=== PATIENT | male | born 1965 | race Caucasian/White ===

== ENCOUNTER 2022-06-08 07:53 | Day surgery (SDC) | payer OTHER ==
--- NOTE | 2022-06-07 17:01 | RAD REPORT ---
EXAM DESCRIPTION: Charlie Tran (2 Views)06/07/2022 4:54 pm CLINICAL HISTORY: Preop for removal mass from the back COMPARISON: One thousand sixteen FINDINGS: The lungs appear clear of acute infiltrate. The heart is normal size IMPRESSION: No acute abnormalities displayed
[2022-06-07 17:15] LABS: Absolute Lymphocytes (CBC) 1.3 K/uL (0.7-4.9); Hematocrit 41.9 % (39.6-49.0); MCV 83.6 fL (80-100); MPV 8.1 fL (7.6-11.3); RBC Red Blood Cell Count 5.01 M/uL (4.33-5.43)
[2022-06-07 17:17] LABS: Potassium 4.1 mmol/L (3.5-5.1)
--- NOTE | 2022-06-07 18:35 | EKG ---
Test Date: 2022-06-07 Test Time: 16:45:04 [employer]: CLAUDIA MEASUREMENT RESULTS: Intervals: Rate: 58 MN: 184 QRSD: 88 QT: 414 QTc: 406 [place]: P: 45 MN: 184 QRS: 42 T: 55 INTERPRETIVE STATEMENTS: Sinus bradycardia Otherwise normal ECG No previous ECG available for comparison Electronically Signed On 06-07-22 18:34:55 CDT by Luis Manuel Russell
[2022-06-08] MEDS ORDERED: CEFAZOLIN SODIUM 1 GM/VIAL ONE (08:42)
[2022-06-08] MEDS ORDERED: Ringers Lactate 1,000 ML IV ONE (08:42)
[2022-06-08] MEDS ORDERED: MIDAZOLAM HCL 2 MG/2 ML INJ ONE (10:59)
[2022-06-08] MEDS ORDERED: propofoL 200 MG/20 ML VIAL IV ONE (11:06)
[2022-06-08] MEDS ORDERED: FENTANYL CITR 100 MCG/2 ML ONE (11:06)
[2022-06-08] MEDS ORDERED: ONDANSETRON 4 MG/2 ML VIAL ONE (11:18)
--- NOTE | 2022-06-08 11:38 | P.BOP ---
Preoperative diagnosis: infected back SubQ mass Postoperative diagnosis: same plus abscess Primary procedure: Excisional biopsy of infected back SubQ mass Estimated blood loss: <10cc Specimen: mass, pus culture Findings: as above Anesthesia: General Complications: None Transferred to: Recovery Room Condition: Good
[2022-06-08] MEDS ORDERED: KETOROLAC 30 MG/ML INJ ONE (11:42)
--- NOTE | 2022-06-08 12:23 | OP ---
Date of Procedure: 06/08/2022 Surgeon: Devonte Jaimes MD Preoperative Diagnosis: Infected back subcutaneous mass with cellulitis. Postoperative Diagnosis: Infected back subcutaneous mass with cellulitis plus abscess. Procedure: Excisional biopsy of infected back subcutaneous mass, 4 x 4 cm. Estimated Blood Loss: Less than 10 mL. Specimen: Mass and pus culture. Finding: The patient has a mass. Deep to that near the muscle, there was an abscess. Both of them were explored and removed. Anesthesia: General plus local. Complications: None. Indication: This is the case of a 57-year-old patient, who comes to us with above diagnoses. Fully explained the benefits, alternatives, and risks of excisional biopsy of infected subcutaneous mass, w hich include, but not limited to infection, bleeding, damage to adjacent structures, anesthesia compl ications, recurrence, DC and even . He also understands this may not relieve any symptoms. He might need more than one surgical intervention and he will require wound care. He signed a consent. Procedure In Detail: The patient was brought to the operating room, placed in supine position. Anes thesia was done without complication. A time-out was called. The patient was placed in lateral decu bitus position with proper protection. The back area was prepped and draped in the usual sterile fas hion. We already have pus coming from the wound, so we did a culture of that area, then proceeded to delineate the mass itself and then made an incision to remove the skin involving that area since it is attached to it and also the subcutaneous tissue. This allowed to visualize an area of what looked like a cyst that is infected. The mass was excised. Deep to that mass just on top of the muscle, t here was an abscess collection that we explored, opened and cultured. The area was irrigated, hemost asis obtained, and the area was packed with wet-to-dry dressing. The patient tolerated the procedure well. The patient was sent to recovery in stable condition. NATALIE/LAQUITA Voice ID: [id number] Report ID: [id number]
--- NOTE | 2022-06-08 12:29 | DS ---
Diagnosis: Infected back subcutaneous mass. Procedure: Excisional biopsy of infected back subcutaneous mass. Disposition: Home. Activity: As tolerated. No heavy lifting. Plan: Follow up in my office tomorrow for instructions about dressing changes. We already explained to them. They will help him even more. NATALEI/LAQUITA Voice ID: [id number] Report ID: [id number]
[2022-06-08 13:28] VITALS: BP 132/73; TEMP 97; O2SAT 99
== END 2022-06-08 13:10 | disposition home or self-care (01) ==
LOC: OR 07:53
PROVIDERS: ATTEND Surgery
PROC: 0JB70ZZ Excision of Back Subcutaneous Tissue and Fascia, Open Approach (ICD-10-PCS; principal; 2022-06-08 09:45)
DX: L72.0 Epidermal cyst (principal); L03.312 Cellulitis of back [any part except buttock and flank]; Z20.822 Contact with and (suspected) exposure to COVID-19
CPT/HCPCS: 93005; 87070; 85025; 80048; 36415; 87205 ×2; 88304; 87075; 71046; 11404; J2704; J2250; J3010; J7120; J2405; J0690